=== PATIENT | male | born 1980 | race Caucasian/White ===

== ENCOUNTER 2016-10-25 07:25 | Emergency (ER) ==
[2016-10-25] MEDS ORDERED: TORADOL IVP STA ×2 (07:57→11:38)
[2016-10-25] MEDS ORDERED: ZOFRAN 4 MG/2 ML IVP STA ×2 (07:57→08:25)
[2016-10-25 08:09] LABS: BASOPHILS % (AUTO) 0.4 % (0.0-3.0); EOSINOPHILS # (AUTO) 0.2 K/ul (0.0-0.7); EOSINOPHILS % (AUTO) 2.4 % (0.0-7.0); HEMATOCRIT 43.6 % (42.0-52.0); IMMATURE GRANULOCYTE % (AUTO) 0.3 % (0.0-5.0); MEAN CORPUSCULAR HEMOGLOBIN 29.9 pg (27.0-31.0); MEAN CORPUSCULAR HGB CONC 34.4 (31.8-35.4); MONOCYTES # (AUTO) 0.7 K/uL (0.4-2.0); MONOCYTES % (AUTO) 9.6 (0-10); NEUTROPHILS # (AUTO) 3.9 K/ul (2.0-6.9); NEUTROPHILS % (AUTO) 57.3; PLATELET COUNT 333 10^3/uL (140-440); RED BLOOD COUNT 5.01 10^6/ul (4.70-6.10); WHITE BLOOD COUNT 6.77 K/ul (4.2-10.2)
[2016-10-25 08:14] VITALS: BP 147/65; TEMP 97; BMI 23.6
[2016-10-25] MEDS ORDERED: MORPHINE 4 MG/ML SYRINGE IVP STA (08:25)
--- NOTE | 2016-10-25 08:25 | ED.PDOC ---
General ED Provider: Dr. JESSICA SAWYER JR Chief Complaint: Kidney Stone Stated Complaint: LEFT FLANK PAIN. DX WITH STONE OVER A WEEK AGO. WAS TOLD HE WOULD PASS IT.[ End ]0700 left flank pain 97 78 18 99 147/65 04/19 norco them emesis ks lithotrypsi Time Seen by Physician: 08:22 Mode of Arrival: Walk-In Information Source: Patient Exam Limitations: No limitations Primary Care Provider: BONY WANG Nursing and Triage Documentation Reviewed and Agree: No Review of Systems - Review Of Systems Constitutional: Reports: Malaise Eyes: Reports: No symptoms Ears, Nose, Mouth, Throat: Reports: No symptoms Respiratory: Reports: No symptoms Cardiac: Reports: No symptoms GI: Reports: No symptoms : Reports: Flank pain, Pain Musculoskeletal: Reports: Back pain Skin: Reports: No symptoms Neurological: Reports: No symptoms Endocrine: Reports: No symptoms Hematologic/Lymphatic: Reports: No symptoms All Other Systems: Other Past Medical History - Past Medical History Previously Healthy: Yes Endocrine: Reports: None Cardiovascular: Reports: None Respiratory: Reports: None Hematological: Reports: None Gastrointestinal: Reports: None Genitourinary: Reports: Kidney stones (multiple- note CT 10/10/16 obstructing left ureteral stone proxial with hydronephrosis three mm in size) Neuro/Psych: Reports: None Musculoskeletal: Reports: None Cancer: Reports: None - Surgical History General Surgical History: Reports: Other (lithoptysy) - Family History Family History: Reports: Other (kidney stones - father) - Social History Smoking Status: Never smoker Hx Substance Use: No Alcohol Screening: Occasionally Physical Exam - Physical Exam Appearance: Ill-appearing, Thin Ill-appearing: Mild Pain Distress: Moderate Eyes: AMOR, EOMI, Conjunctiva clear ENT: Ears normal, Nose normal, Oropharynx normal Neck: Supple Respiratory: Airway patent, Breath sounds clear, Breath sounds equal, Respirations nonlabored Cardiovascular: RRR, Pulses normal, No rub, No murmur GI/: Soft, Nontender, No masses, Bowel sounds normal, No Organomegaly, Tender (complains of LUQ tenderness not reproducible) Musculoskeletal: Normal strength, ROM intact, No edema, No calf tenderness Skin: Warm, Dry, Normal color Neurological: Sensation intact, Motor intact, Reflexes intact, Cranial nerves intact, Alert, Oriented Psychiatric: Anxious Critical Care Note - Critical Care Note Total Time (mins): 0 Course - Course Hematology/Chemistry: 10/25/16 08:05 10/25/16 08:05 Orders, Labs, Meds: Lab Review 10/25/16 10/25/16 08:05 09:50 WBC 6.77 RBC 5.01 Hgb 15.0 Hct 43.6 MCV 87.0 MCH 29.9 MCHC 34.4 RDW Coeff of Rene 12.0 Plt Count 333 Immature Gran % (Auto) 0.3 Neut % (Auto) 57.3 Lymph % (Auto) 30.0 [place] % (Auto) 9.6 Eos % (Auto) 2.4 Baso % (Auto) 0.4 Immature Gran # (Auto) 0.0 Neut # 3.9 Lymph # 2.0 [place] # 0.7 Eos # 0.2 Baso # 0.0 Sodium 141 Potassium 3.8 Chloride 105 Carbon Dioxide 28 Anion Gap 11.8 BUN 14 Creatinine 0.98 Estimated GFR (MDRD) 87.00 BUN/Creatinine Ratio 14.28 Glucose 109 H Calcium 9.0 Total Bilirubin 0.30 AST 18 ALT 18 Alkaline Phosphatase 67 Total Protein 7.3 Albumin 4.2 Globulin 3.1 Albumin/Globulin Ratio 1.35 Amylase 53 Lipase 43 Urine Color [place] Urine Clarity Cloudy Urine pH 6.0 Ur Specific [place] >=1.030 Urine Protein 2+ Urine Glucose (UA) Negative Urine Ketones 1+ Urine Blood 3+ Urine Nitrite Negative Urine Bilirubin 1+ Urine Urobilinogen 1.0 Ur Leukocyte Esterase Negative Urine Microscopic RBC Tntc Urine Microscopic WBC Tntc Ur Squamous Epith Cells Not present Urine Bacteria 1+ Orders Category Date Time Status ED IV/MEDIPORT/POWERPORT .ONCE EMERGENCY 10/25/16 07:49 Active AMYLASE Stat LAB 10/25/16 08:05 Completed CBC W/ AUTO DIFF Stat LAB 10/25/16 08:05 Completed COMPREHENSIVE METABOLIC PANEL Stat LAB 10/25/16 08:05 Completed LIPASE Stat LAB 10/25/16 08:05 Completed URINALYSIS C & S IF INDICATED Stat LAB 10/25/16 09:50 Completed URINE CULTURE Stat LAB 10/25/16 09:50 Received 0.9 % Sodium Chloride [Saline Flush] MEDS 10/25/16 07:55 Active 1 syr IVF PRN PRN Hydromorphone HCl [Dilaudid 1 mg/ml Syringe] MEDS 10/25/16 11:38 Discontinued 1 mg IVP ONCE STA Ketorolac Tromethamine [Toradol] MEDS 10/25/16 07:57 Discontinued 30 mg IVP ONCE STA Ketorolac Tromethamine [Toradol] MEDS 10/25/16 11:38 Discontinued 30 mg IVP ONCE STA Levofloxacin [Levaquin] MEDS 10/25/16 11:27 Discontinued 500 mg PO ONCE STA Morphine Sulfate [Morphine 4 mg/ml Syringe] MEDS 10/25/16 08:25 Discontinued 4 mg IVP ONCE STA Ondansetron HCl/Pf [Zofran 4 mg/2 ml] MEDS 10/25/16 12:09 Discontinued 4 mg .ROUTE .STK-MED ONE Ondansetron HCl/Pf [Zofran 4 mg/2 ml] MEDS 10/25/16 07:57 Discontinued 4 mg IVP ONCE STA Ondansetron HCl/Pf [Zofran 4 mg/2 ml] MEDS 10/25/16 08:25 Discontinued 4 mg IVP ONCE STA Sodium Chloride 0.9% [Sodium Chloride] 1,000 ml MEDS 10/25/16 09:48 Active IV 200 mls/hr Sodium Chloride 0.9% [Sodium Chloride] 1,000 ml MEDS 10/25/16 08:[address] ABD/PEL WO RENAL STONE PROT Stat RADS 10/25/16 11:01 Completed Medications Generic Name Dose Route Start Last Admin Trade Name Freq PRN Reason Stop Dose Admin Sodium Chloride 1,000 mls @ 200 mls/hr 10/25/16 09:48 10/25/16 09:59 Sodium Chloride IV 10/25/16 14:47 200 mls/hr .Q5H STA Administration Sodium Chloride 1 syr 10/25/16 07:55 Saline Flush IVF PRN PRN To flush IV Discontinued Medications Generic Name Dose Route Start Last Admin Trade Name Freq PRN Reason Stop Dose Admin Hydromorphone HCl 1 mg 10/25/16 11:38 Dilaudid 1 Mg/Ml Syringe IVP 10/25/16 11:39 ONCE STA Sodium Chloride 1,000 mls @ 1,000 mls/hr 10/25/16 08:35 10/25/16 08:25 Sodium Chloride IV 10/25/16 09:34 1,000 mls/hr BOLUS STA Administration Ketorolac Tromethamine 30 mg 10/25/16 07:57 10/25/16 08:33 Toradol IVP 10/25/16 07:58 30 mg ONCE STA Administration Ketorolac Tromethamine 30 mg 10/25/16 11:38 10/25/16 12:11 Toradol IVP 10/25/16 11:39 30 mg ONCE STA Administration Levofloxacin 500 mg 10/25/16 11:27 10/25/16 12:46 Levaquin PO 10/25/16 11:28 500 mg ONCE STA Administration Morphine Sulfate 4 mg 10/25/16 08:25 10/25/16 08:36 Morphine 4 Mg/Ml Syringe IVP 10/25/16 08:26 4 mg ONCE STA Administration Ondansetron HCl 4 mg 10/25/16 07:57 10/25/16 08:33 Zofran 4 Mg/2 Ml IVP 10/25/16 07:58 4 mg ONCE STA Administration Ondansetron HCl 4 mg 10/25/16 08:25 10/25/16 12:11 Zofran 4 Mg/2 Ml IVP 10/25/16 08:26 4 mg ONCE STA Administration Vital Signs: Temp Pulse Resp BP Pulse Ox 10/25/16 08:09 97 F L 78 18 147/65 H 99 Departure - Departure Time of Disposition: 10:04 Disposition: HOME SELF-CARE Discharge Problem: Kidney stone Instructions: Ureteral Stones (ED) Condition: Fair Pt referred to PMD for follow-up: Yes (referral to urologist) Additional Instructions: call urology for appointment tomorrow Dr Lal [phone] does not appear to have moved return if fever over 101.0 may use toradol for pain [place] for pain not controlled Prescriptions: Hydrocodone Bit/Acetaminophen [[place] 5-325] 1 - 2 tab PO Q6HR PRN #12 tablet PRN Reason: pain Ketorolac Tromethamine [Toradol] 10 mg PO QID PRN #20 tablet PRN Reason: PAIN Allergies/Adverse Reactions: Allergies No Known Allergies Allergy (Unverified 10/25/16 08:08) Home Medications: Ambulatory Orders Hydrocodone Bit/Acetaminophen [[place] 5-325] 1 - 2 tab PO Q6HR PRN #12 tablet Hydrocodone/Acetaminophen [[place] 10-325 Tablet] 1 each PO QID 10/25/16 Ketorolac Tromethamine [Toradol] 10 mg PO QID PRN #20 tablet 10/25/16 Ondansetron HCl [Zofran] 4 mg PO BID PRN 10/25/16 Tamsulosin HCl [Flomax] 0.4 mg PO DAILY 10/25/16
[2016-10-25 08:27] LABS: ALBUMIN 4.2 g/dL (3.4-5.0); ALBUMIN/GLOBULIN RATIO 1.35; ANION GAP 11.8; BILIRUBIN,TOTAL 0.3 mg/dL (0.00-1.20); BUN/CREATININE RATIO 14.28; CREATININE 0.98 mg/dL (0.60-1.10); POTASSIUM 3.8 mmol/L (3.5-5.1); TOTAL PROTEIN 7.3 g/dL (6.4-8.2)
[2016-10-25] MEDS ORDERED: SODIUM CHLORIDE 1,000 ML IV STA ×2 (08:35→09:48)
[2016-10-25 10:02] LABS: BILIRUBIN,URINE 1+ (NEGATIVE); KETONES,URINE 1+ (NEGATIVE); LEUKOCYTE ESTERASE ,URINE Negative (NEGATIVE); NITRITE,URINE Negative (NEGATIVE); PROTEIN,URINE 2+ (NEGATIVE); URINE, BLOOD 3+ (NEGATIVE)
[2016-10-25 10:05] LABS: ADD URINE MICROSCOPIC YES
[2016-10-25 10:06] LABS: BACTERIA,URINE 1+ (NOT PRESENT)
[2016-10-25] MEDS ORDERED: LEVAQUIN PO STA (11:27)
[2016-10-25] MEDS ORDERED: DILAUDID 1 MG/ML SYRINGE IVP STA (11:38)
[2016-10-25] MEDS ORDERED: ZOFRAN 4 MG/2 ML ONE (12:09)
--- NOTE | 2016-10-25 13:17 | CT ---
EXAM: CT of the abdomen pelvis without contrast History: Abdominal pain and left flank pain. Comparison: CT abdomen and pelvis 09/12/2008 Technique: Multiplanar CT images through the abdomen pelvis were obtained without the administratio n of IV contrast Findings: Lung bases are clear. No acute osseous abnormalities. No discrete gallstones identified by CT. Mild circumferential wall thickening of the distal esophag us. No peripancreatic inflammation. Adrenal glands are unremarkable. No focal liver or splenic les ions. A few small 2 mm right renal calculi. A few small 2 mm left renal calculi. There is a 5 mm calculus within the proximal left ureter causing mild to moderate left hydronephrosis. No bowel obstruction. No free air. No ascites. Bladder is not well distended. No perirectal infl ammation. Prostate is not enlarged. Impression: 1. 5 mm calculus within the proximal left ureter causing mild to moderate left hydronephrosis. 2. Bilateral nephrolithiasis. 3. Mild circumferential wall thickening of the distal esophagus could be within normal limits but c orrelate for esophagitis.
== END 2016-10-25 15:16 | disposition home or self-care (01) ==
LOC: ED 07:25
DX: N20.0 Calculus of kidney (principal)
CPT/HCPCS: 36415; 74176; 80053; 81001; 82150; 83690; 85025; 87086; 96361; 96374; 96375; 96376; 99283